=== PATIENT | male | born 1950 | race Caucasian/White ===

== ENCOUNTER → 2016-09-25 | Outpatient (CLI) | payer MEDICARE, BC ==
[~2016-09-25] MED LIST: ABILIFY5 MG PO; AMOXICILLIN500 M1 PO; ANTIDIARRHEA MED PO; ARTHRITIS MED PO; BLOOD PRESSURE MED PO; CLARITHROMYCIN500 MG PO; EFFEXOR XR; FISH OIL 1,2001 CAP PO; FLEXERIL10 M1 PO; LOSARTAN POTAS100 MG PO; MAGNESIUM GLUC200 MG PO; OMEPRAZOLE40 M1 PO; OMEPRAZOLE40 MG PO; PRILOSEC20 M1 PO; PRINIVIL10 MG PO; VIIBRYD40 MG PO; VITAMIN D32000 UNIT PO; VOLTAREN75 MG PO; ZOFRAN ODT4 MG PO; [UNRECOGNIZED DRUG - OTHER]
--- NOTE | ~2016-09-25 | EKG ---
PATIENT: ROSANNA NATION UNIT #: [id number] Ventricular Rate: 92 BPM Atrial Rate: 92 BPM P-R Interval: 152 ms QRS Duration: 72 ms Q-T Interval: 342 ms QTC Calculation(Bezet): 422 ms P Denton: 24 degrees Calculated R [place]: 1 degrees Calculated T Denton: 14 degrees Diagnosis Line: Normal sinus rhythm Diagnosis Line: Normal ECG Diagnosis Line: When compared with ECG of 18-FEB-2013 12:59, Diagnosis Line: No significant change was found Diagnosis Line: Confirmed by SABRINA JARVIS MD ([id number]) on 09/26/2016 Diagnosis Line: 7:33:19 AM INTERPRETING MD: MATHEUS KNUTSON
[2016-09-25 12:33] LABS: HEMATOCRIT 46.8 % (38.0-50.0); HEMOGLOBIN 15.8 gm/dL (13.0-16.0); MEAN CELL VOLUME 94.3 FL (83-96); MEAN CORPUSCULAR HEMOGLOBIN 31.8 PG (28-34); MEAN CORPUSCULAR HGB CONC 33.7 g/dL (30-36); MEAN PLATELET VOLUME 7.5 FL (6.5-11.5); RED BLOOD COUNT 4.96 X10e (3.90-5.60); RED CELL DISTRIBUTION WIDTH 13.5 % (11.0-15.5); WHITE BLOOD COUNT 7.3 X10e3 (4.0-10.5)
[2016-09-25 13:03] LABS: BUN/CREATININE RATIO 12.3; CALCIUM SERUM 9.1 mg/dL (8.4-10.2); CREATININE SERUM 1.3 mg/dL (0.6-1.4); GLOM FILT RATE Estimated 56.9 mL/min (>60); POTASSIUM 4.1 mmol/L (3.5-5.1)
== END | disposition home or self-care (01) ==
LOC: CEKG 12:11
PROVIDERS: Otolaryngology
DX: Z01.818 Encounter for other preprocedural examination (principal); G47.33 Obstructive sleep apnea (adult) (pediatric)
CPT/HCPCS: 36415; 80048; 85027; 93005

== ENCOUNTER → 2016-12-20 | Outpatient (CLI) | payer MEDICARE, BC ==
--- NOTE | ~2016-12-20 | CT2 ---
[facility] A Service of [facility] & [facility] RADIOLOGY TEXT RESULTS PATIENT: ROSANNA NATION LOCATION: CCAT : 50 UNIT #: [id number] AGE: [address]: Steph Hargrove APRN SEX: M ORDER DR: [id number] [facility] [address] [place], [place] [address] [id number] O MR#: [id number] Acc #: [id number] NAME: ROSANNA NATION : 1950 SEX: M STUDY DATE/TIME: 12/20/2016 14:47 UNIT: [facility] ROOM: STUDY DESCRIPTION: CT Abd and Pelv W Cont Attending Physician: Steph Hargrove Aprn Referring Physician: Steph Hargrove Aprn Ordering Physician: Steph Hargrove Aprn Primary Care Physician: Lin Krause A.P.R.N. MEDICAL IMAGING REPORT This report is preliminary unless electronic signature is present EXAM CT of the abdomen and pelvis with contrast. DATE 12/20/2016 HISTORY 66-year-old male with hazy abdominal mesentery seen on CT from 2015. Followup. No current complaints. No documented history of malignancy. COMPARISON CT abdomen and pelvis with contrast, 09/30/2015, 02/18/2013. PROCEDURE 5 mm axial images from lung bases through lesser trochanters after intravenous and enteric contrast administration. Sagittal and coronal reformatted images were obtained. This CT exam was performed with one or more of the following radiation dose reduction techniques: automatic exposure control, adjustment of mA and/or kV according to patient size, and iterative reconstruction. FINDINGS ABDOMEN FINDINGS: Lung bases are clear. Heart size is normal. Liver is diffusely steatotic. No focal liver lesions are seen. The spleen, pancreas, adrenals and kidneys are normal. Cholecystectomy. Ill-defined "santino" appearance of the central abdominal mesentery has a similar appearance to the 2015 and 2012 examinations. Given the stability, lack of associated adenopathy, is suggestive of benign etiology such as sequelae of mesenteric adenitis. No soft tissue mass is identified. Bowel appears nonthickened, nondilated, and noninflamed. Normal appendix. PELVIS FINDINGS: Uncomplicated sigmoid diverticular changes. Urinary bladder, prostate and rectum are normal. No pelvic adenopathy or free STS. [facility] A Service of [facility] & [facility] RADIOLOGY TEXT RESULTS PATIENT: ROSANNA NATION LOCATION: [facility] : 50 UNIT #: [id number] AGE: [address]: Steph Hargrove APRN SEX: M ORDER DR: fluid. Degenerative disc endplate changes L3-4 and L5-S1. No acute osseous abnormalities. IMPRESSION 1. Ill-defined hazy appearance of the central abdominal mesentery is a stable finding since 2012 in keeping with the appearance of sequelae of previous mesenteric adenitis. 2. No soft tissue mass or pathologic adenopathy is seen within the abdomen or pelvis. No acute findings. 3. Uncomplicated colonic diverticulosis. 4. Hepatic steatosis. 5. Cholecystectomy. Dictated by... Maggie Driver M.D. THIS IS AN ELECTRONICALLY VERIFIED REPORT Maggie Driver M.D. at 12/22/2016 1:11 PM THANIA/willie TD: 12/21/2016 20:09 JOB #: [id number] MEDICAL IMAGING REPORT Page 1 of 1 COPY
[2016-12-20 15:41] LABS: POC - CREATININE 1.5 mg/dL (0.64-1.27)
== END | disposition home or self-care (01) ==
LOC: CCAT 12:23
PROVIDERS: Nurse Practitioner
DX: R93.5 Abnormal findings on diagnostic imaging of other abdominal regions, including retroperitoneum (principal); K57.30 Diverticulosis of large intestine without perforation or abscess without bleeding; K76.0 Fatty (change of) liver, not elsewhere classified; Z90.49 Acquired absence of other specified parts of digestive tract
CPT/HCPCS: 74177; 82565; 96360; 96361; Q9967